=== PATIENT | male | born 1955 | race Caucasian/White ===

== ENCOUNTER 2019-01-29 22:13 | Inpatient (IN) ==
[2019-01-29] MEDS ORDERED: ISOVUE-370 200 ML INFUS..BTL ONE (22:38)
[2019-01-29] MEDS ORDERED: Nitroglycerin 1,000 MCG/10 ML VIAL IV ONE (22:38)
[2019-01-29] MEDS ORDERED: 0.9 % Sodium Chloride 2,000 ML ONE (22:38)
[2019-01-29] MEDS ORDERED: Heparin 1,000 UNITS/500 mL 500 ML ONE (22:38)
[2019-01-29] MEDS ORDERED: *HR* Heparin 10,000 UNIT/10 ML VIAL ONE (22:38)
[2019-01-29] MEDS ORDERED: *HR* Midazolam HCl 2 MG/2 ML VIAL ONE (23:04)
[2019-01-29] MEDS ORDERED: *HR* FentaNYL (PF) 100 MCG/2 ML VIAL ONE (23:04)
[2019-01-29] MEDS ORDERED: *HR* Atropine Sulfate 1 MG/10 ML SYRINGE ONE (23:15)
[2019-01-29] MEDS ORDERED: Tirofiban 12.5 MG/250ML 12.5 MG/250 ML BAG ONE (23:24)
[2019-01-30] MEDS ORDERED: *HR* Phenylephrine 10 MG/ML VIAL ONE (00:01)
[2019-01-30] MEDS ORDERED: D5% in Water 250 ML ONE (00:02)
[2019-01-30] MEDS ORDERED: *HR* Midazolam HCl 2 MG/2 ML VIAL ONE ×2 (00:16→00:38)
[2019-01-30] MEDS ORDERED: 0.9 % Sodium Chloride 1,000 ML ONE (00:44)
--- NOTE | 2019-01-30 01:05 | Cardiology Consult Note ---
Date of Encounter: 01/29/19 Time of Encounter: 23:00 Assessment and Plan Discussion w patient/family: The assessment and plan as outlined above was discussed with the patient and/or family members who expressed understanding and agreement. All questions were answered. Thank you for involving us in the care of your patient. Please call with any questions. History of Present Illness Consult date: 01/29/19 Consult reason: stemi Chief complaint: chest pain History of present illness: Mr. Galeano is a 63 year old male admitted to the optical laboratory mechanic as transfer from [place] ED where he presented with anterior wall STEMI. At cath there is severe three vessel disease Wth acute LAD occlusion. Aspiration thrombectomy with removal of thrombus and atheroma and unable to keep vessel open. There is RCA occlusion chronic withy L to R collateral. The CX and Left main has disease. Spoke with family and they want transfer to [place]. I spoke with Dr. Bobby who will receive him. . Patient neededec pressor a nd needed intubation. Will transfer.. Past Med Surg Social Fam HX - Past Medical History Medical history: no medical history Psychiatric history: no psych history - Social History Smoking Status: Never smoker Smokeless Tobacco Status: No Alcohol use: none Drug use: none Medications and Allergies No Known Home Drugs 01/29/19 [History] Allergy/AdvReac Type Severity Reaction Status Date / Time No Known Allergies Allergy Verified 01/29/19 21:58 ROS unobtainable: due to endotracheal tube All Systems Review: The remainder of the systems were reviewed and are negative Review of Systems: severe pain progressive over past 2 weeks and much worse today.. - Cardiovascular Cardiovascular: as per HPI, chest pain at rest, chest pain with exertion
[2019-01-30] MEDS ORDERED: *HR* Midazolam HCl 5 MG/5 ML VIAL IVP ONE (01:15)
--- NOTE | 2019-01-30 01:49 | Invasive Diagnostic Lab Proc ---
Name: Wally Galeano Date of Study: 01/29/2019 Date: 1955 Ht: 68.9in Medical Record#: [id number] Age: 63 Wt: 199.96lb Gender: Male BSA: 2.06 Order #: [id number] BMI: 29.62 Physicians Procedure Physician: Dallas Beltrán MD Referring MD: Referring MD: Staff Name Position Time In [facility] Paco RN Monitor 11:03 PM Nicky Bermudez RN Scrub 11:06 PM Shanell Giang RN Chemical Process Engineer 11:06 PM Indications Indication STEMI Procedures Performed Procedure PRQ CARD REVASC CT 1 VSL CORONARY ARTERY ANGIO S&I Pre-Procedure Checklist Informed consent is complete signed and on chart. H&P is on chart. ID band is on and ID verified with patient. Patient NPO for procedure The procedure was described for the patient and questions were answered. Blood Pressure: 156/101 ECG is on chart. Rhythm: NSR Plan of Care Patient will tolerate the procedure without complications. Adequate level of comfort will be maintained. Hemodynamics will remain stable Patient will recover from procedure without complications. Respiratory function will be maintained. Cardiac rhythm will remain stable. Patient temperature will be maintained. Patient and/or family have verbalized understanding of the procedure. Patient Education Chief Complaint/Reason for Test: Cardiac Cath Developmental Category: Geriatric (65+ years) Developmentally Appropriate for Age: Yes Learning Barriers: None Education Needs: Procedure Education Method: Verbal Information Taught: Cardiac Cath Educational Evaluation: Able to repeat information Intravenous Access Time IV Size Location DC'd Fluid/Drip Rate Units RN 18g 1 1/4" Patent On Arrival Rt Antecubital Shanell Giang RN 20g 1 1/4" Patent On Arrival Lt Antecubital 0.9NaCl Shanell Giang RN Allergies No Known Allergies Vital Signs Time BP (mmHg) HR (bpm) O2 Sat. RR (bpm) LOC 11:07 PM / % 5 = Fully awake and oriented or at pre-proc level 11:07 PM / % 4 = Oriented but drowsy 11:23 PM / % 4 = Oriented but drowsy 11:39 PM / % 5 = Fully awake and oriented or at pre-proc level 11:55 PM / % 4 = Oriented but drowsy 11:07 PM 143 / 99 87 95 % 11:11 PM 139 / 90 81 99 % 8 11:16 PM 156 / 101 88 97 % 17 11:21 PM 158 / 102 93 96 % 17 11:26 PM 153 / 99 91 97 % 15 11:31 PM 131 / 82 89 98 % 17 11:36 PM 126 / 92 84 97 % 7 11:42 PM 137 / 85 80 100 % 8 11:46 PM 134 / 86 86 98 % 10 11:51 PM 123 / 82 91 96 % 16 12:00 AM 76 / 59 86 99 % 22 12:05 AM 103 / 83 86 97 % 17 12:13 AM 128 / 100 87 86 % 20 12:15 AM 107 / 81 83 84 % 16 12:17 AM 96 / 77 87 96 % 15 12:22 AM 78 / 64 55 82 % 30 12:27 AM 95 / 81 131 84 % 15 12:32 AM 84 / 59 112 81 % 34 12:48 AM 93 / 71 105 94 % 14 12:53 AM 88 / 68 101 97 % 30 12:58 AM 94 / 67 91 99 % 17 Procedural Medications Time Medication Dose Units Method Given By 11:07 PM Oxygen 2 L/min nasal cannula Shanell Giang RN 11:07 PM Versed 2 mg Intravenous Shanell Giang RN 11:07 PM Fentanyl 50 mcg Intravenous Shanell Giang RN 11:13 PM Lidocaine 2% 10 ml Subcutaneous Dallas Beltrán MD 11:26 PM Aggrastat Bolus: 46 ml Intravenous Shanell Giang RN 11:27 PM Aggrastat 12.5mg/250ml 16.5 ml/hr Intravenous Shanell Giang RN 11:32 PM Heparin 3000 units Intravenous Shanell Giang RN 12:07 AM Neosynephrine 100 mcg/min Intravenous Shanell Giang RN 12:15 AM Versed 1 mg Intravenous Shanell Giang RN 12:15 AM Fentanyl 50 mcg Intravenous Shanell Giang RN 12:14 AM Heparin 3000 units Intravenous Shanell Giang RN 12:27 AM Atropine 1 mg Intravenous Paco Nguyen RN 12:39 AM Versed 2 mg Intravenous Shanell Giang RN 12:44 AM Versed 1 mg Intravenous WendyPaco bro RN ASA Classification: Emergent Procedure: ASA score is assumed Sarah Score Preprocedure Postprocedure Activity 2- Moves 4 extremities sustained head lift Activity 2- Moves 4 extremities sustained head lift Circulation 2- SBP +/= 20 points of pre-anesthetic level Circulation 1- SBP+/= 20 - 50 points of pre-anesthetic level Consciousness 2- Awake and alert oriented x 3 Consciousness 0- Non-responsive O2 Saturation 2- Able to maintain O2 satruation of 92% on room air O2 Saturation 0- O2 saturation 90% even with O2 supplement Respiratory 2- Able to deep breathe and cough well Respiratory 0- Apneic requires ventilator or assisted respiration Total Score 10 Total Score 3 Contrast Agent: Isovue Diagnostic Contrast: 210 ml Total Contrast: 210 ml Fluoro Dose: 168 mGy Activated Clotting Time Time Seconds to Clot 12:15 AM 160 Procedure Log Time Note Enter By 11:03 PM Pt arrived to laboratory inspector 2 at 23:03 [facility] 11: PM Paco Nguyen RN Position: Monitor Time in: : [facility] : PM Physician arrived 23: [facility] : PM Donn and guille completed [facility] : PM Sign in performed according to hospital policy. Informed consent was obtained. [facility] : Procedure start 23: [facility] : PM CathStat 11:06 PM Vitals capture started with the following parameters, Patient=Adult, Interval=5 min, Initial Gntpovhx=619 mmHg, Deflation Rate=3 mmHg, Cuff placed on Right Arm 11: PM Nicky Bermudez RN Position: Scrub Time in: 23: [facility] 11: PM Shanell Giang RN Position: Chemical Process Engineer Time in: : [facility] : PM Patient charges- Angio tray pack, Navilyst 3mm J, Pulse Oximetry and ACIST tubing and transducer [facility] : PM Hair removed from procedure site in holding area using clippers. Bilateral groin prepped with Chloraprep by Nicky Bermudez RN, then patient was draped. Skin intact. [facility] : PM Time: 23:07 Patient comfortable and pain free: Yes [facility] : PM Time: 23:07LOC: 5 = Fully awake and oriented or at pre-proc level [facility] : PM Time: 23:07 Oxygen on at 2 L/min per nasal cannula by Shanell [facility]ang RN [facility] 11:07 PM Time: 23:07 Versed 2 mg Intravenous Given by Shanell Giang RN roxnanci 11:07 PM Time: 23:07 Fentanyl 50 mcg Intravenous Given by Shanell Giang RN [facility] 11:07 PM HR=87 bpm, ROLW=309/99 mmhg, SpO2=95.0 % 11:11 PM HR=81 bpm, PNZC=637/90 mmhg, SpO2=99.0 %, Resp=8 B/min 11:13 PM Time out was performed according to hospital policy. Conscious sedation and anesthesia was achieved (see medication log with in this report above) [facility] 11:13 PM Critical cardiac patient with acute CT was brought emergently to the cardiac metallurgical lab technician for immediate coronary angiography and intervention if clinically indicated. [facility] 11:13 PM Time: 23:13 10 ml Lidocaine 2% to 20 Subcutaneous Given by Dallas Beltrán MD [facility] 11:13 PM Pressure channel 1 zeroed. 11:14 PM Access obtained by percutaneous puncture. 6Fr 10cm Terumo [place] sheath placed in right Femoral artery. [id number] [facility] 11:15 PM Recorded Pressure: Ao, HR=84, Condition=Condition 1 (Aorta) Ao 138/105/122 11:15 PM 5Fr FR 4 catheter inserted over the wire [facility] 11:16 PM RCA angiography performed in multiple views. [facility] 11[facility] PM HR=88 bpm, ZBAM=072/101 mmhg, SpO2=97.0 %, Resp=17 B/min 11:17 PM [facility] 11:17 PM 6Fr XB3.5 Cordis guide catheter was used to cannulate the PCI vessel successfully. reused? No [facility] 11:17 PM Inflation device was opened. [facility] 11:17 PM Recorded Pressure: Ao, HR=90, Condition=Condition 1 (Aorta) Ao 121/72/95 11:18 PM Recorded Pressure: Ao, HR=90, Condition=Condition 1 (Aorta) Ao 141/92/114 11:21 PM HR=93 bpm, HEJQ=709/102 mmhg, SpO2=96.0 %, Resp=17 B/min 11:23 PM Time: 23:07LOC: 4 = Oriented but drowsy [email or web address] 11:23 PM Time: 23:07 Patient comfortable and pain free: Yes [facility] 11:24 PM .014 [employer] [place] 190cm guide wire across target lesion- successful. reused? No [facility] 11: PM Time: 23: Aggrastat Bolus: 46 ml Intravenous Given by Shanell Giang RN Pena pump [facility] 11: PM HR=91 bpm, HNFC=364/99 mmhg, SpO2=97.0 %, Resp=15 B/min 11: PM Time: : Aggrastat 12.5mg/250ml 16.5 ml/hr Intravenous Given by Shanell Giang RN Pena pump [facility] 11: PM 2.5 mm x 12 mm Emerge Monorail balloon across target lesion- successful. reused? No [facility] 11: PM Balloon inflated @ 12 edward for [facility] 11: PM Balloon inflated @ 12 edward for [facility] 11: PM Balloon inflated @ 12 edward for 9 seconds [email or web address] 11: PM Lesion found in Proximal LAD. Pre Stenosis: 100 Pre ANGIE Flow: 0: No Flow/No perfusion jcallan 11:29 PM Proximal Left Anterior Descending Coronary Artery with 100% stenosis. If graft is supplying this territory, 0 % stenosis. jcallihan 11:31 PM HR=89 bpm, HYDH=215/82 mmhg, SpO2=98.0 %, Resp=17 B/min 11:32 PM Time: 23:32 Heparin 3000 units Intravenous Given by hSanell Giang RN [facility] 11:33 PM .014 ChoICE PT Extra Support 182cm guide wire across target lesion- successful. reused? No... Second wire down 1st diag. jcallihan 11:36 PM HR=84 bpm, TFEI=275/92 mmhg, SpO2=97.0 %, Resp=7 B/min 11:37 PM Recorded Pressure: Ao, HR=82, Condition=Condition 1 (Aorta) Ao 102/79/91 11:37 PM 2.0 mm x 15 mm Emerge Monorail balloon across target lesion- successful. reused? No [email or web address] 11:39 PM Time: 23:23 Patient comfortable and pain free: Yes [facility] 11:39 PM Time: 23:23LOC: 4 = Oriented but drowsy [facility]han 11:42 PM HR=80 bpm, GPHQ=253/85 mmhg, FvE2=695.0 %, Resp=8 B/min 11:46 PM HR=86 bpm, RMUX=842/86 mmhg, SpO2=98.0 %, Resp=10 B/min 11:49 PM difficulty getting wires across vessel. jcallihan 11:50 PM Recorded Pressure: Ao, HR=86, Condition=Condition 1 (Aorta) Ao 112/76/92 11:51 PM HR=91 bpm, AXKB=029/82 mmhg, SpO2=96.0 %, Resp=16 B/min 11:54 PM Balloon inflated @ 6 edward for 12 seconds [email or web address] 11:55 PM Balloon inflated @ 6 edward for [facility] 11:55 PM Time: 23:39 Patient comfortable and pain free: Yes j[facility]han 11:55 PM Time: 23:39LOC: 5 = Fully awake and oriented or at pre-proc level [email or web address] 11:55 PM Balloon inflated @ 6 edward for 10 seconds [email or web address] 11:56 PM Balloon inflated @ 6 edward for 14 seconds jcallan 11:57 PM Balloon inflated @ 6 edward for 13 seconds jcallan 11:57 PM Balloon inflated @ 10 edward for 31 seconds jcallan 11:58 PM Balloon inflated @ 10 edward for 16 seconds jcallan 11:58 PM Balloon inflated @ 10 edward for 10 seconds jcallan 11:58 PM Vitals capture stopped. 11:58 PM Vitals capture started with the following parameters, Patient=Adult, Interval=5 min, Initial Urscrusu=562 mmHg, Deflation Rate=3 mmHg, Cuff placed on Right Arm 12:00 AM HR=86 bpm, NIBP=76/59 mmhg, SpO2=99.0 %, Resp=22 B/min 12:01 AM Balloon inflated @ 12 edward for 22 seconds [email or web address] 12:01 AM Balloon inflated @ 12 edward for 20 seconds j[facility]ihan 12:02 AM Recorded Pressure: Ao, HR=88, Condition=Condition 1 (Aorta) Ao 75/63/69 12:02 AM Balloon inflated @ 16 edward for 30 seconds jcallihan 12:02 AM Balloon inflated @ 16 edward for 14 seconds [email or web address] 12:03 AM Balloon inflated @ 16 edward for 19 seconds jcallihan 12:03 AM Balloon inflated @ 16 edward for 10 seconds jcallihan 12:04 AM Balloon inflated @ 16 edward for 12 seconds jcallihan 12:05 AM Balloon inflated @ 16 edward for 11 seconds jcallihan 12:05 AM HR=86 bpm, ZHQE=029/83 mmhg, SpO2=97.0 %, Resp=17 B/min 12:07 AM Time: 00:07 Neosynephrine 100mcg/min Intravenous Given by Shanell Giang RN [facility] 12:11 AM Time: 23:55LOC: 4 = Oriented but drowsy j[facility]ihan 12:11 AM Time: 23:55 Patient comfortable and pain free: Yes [email or web address] 12:11 AM Balloon catheter removed intact. [email or web address] 12:11 AM Balloon catheter removed intact. jcallihan 12:11 AM Guide wire removed intact. BMW. Choice Pt is down the LAD [facility] 12[facility]11 AM Vitals capture stopped. 12:12 AM Vitals capture started with the following parameters, Patient=Adult, Interval=5 min, Initial Inbnqbna=175 mmHg, Deflation Rate=3 mmHg, Cuff placed on Right Arm 12:13 AM HR=87 bpm, XMZF=954/100 mmhg, SpO2=86 %, Resp=20 B/min 12:14 AM NIBP STAT measurement started. 12:14 AM Time: 00:14 Heparin 3000 units Intravenous Given by [facility] 12:15 AM HR=83 bpm, MDIT=548/81 mmhg, SpO2=84 %, Resp=16 B/min 12:15 AM Time: 00:15 Versed 1 mg Intravenous Given by Shanell Giang RN [facility] 12:15 AM Time: 00:15 Fentanyl 50 mcg Intravenous Given by Shanell Giang RN 12:15 AM Guide catheter removed intact. [facility] 12:15 AM Guide wire removed intact. [facility] 12:15 AM At 00:15 the ACT was 160 seconds. allnanci 12:17 AM HR=87 bpm, NIBP=96/77 mmhg, SpO2=96 %, Resp=15 B/min 12:18 AM Pronto V4 thrombectomy pass # 1 for 10 ml total fluid. jcallan 12:19 AM Pronto V4 thrombectomy pass # 2 for 30 ml total fluid. [facility] 12:22 AM HR=55 bpm, NIBP=78/64 mmhg, SpO2=82 %, Resp=30 B/min 12:27 AM MP=878 bpm, NIBP=95/81 mmhg, SpO2=84 %, Resp=15 B/min 12:27 AM Time: 00:27 Atropine 1 mg Intravenous Given by Paco Nguyen RN [facility] 12:32 AM UU=456 bpm, NIBP=84/59 mmhg, SpO2=81 %, Resp=34 B/min 12:38 AM Respiratory called for intubation [facility] 12:38 AM Recorded Pressure: Ao, ST=153, Condition=Condition 1 (Aorta) Ao 92/66/76 12:39 AM Time: 00:39 Versed 2 mg Intravenous Given by Shanell Giang RN [facility] 12:39 AM Vitals capture stopped. 12:44 AM Time: 00:44 Versed 1 mg Intravenous Given by Paco Nguyen RN [facility] 12:45 AM Time: 00:44 Neosynephrine 100 mcg/min Intravenous Given by Shanell Giang RN [facility] 12:47 AM pt intubated at 0045 [facility] 12:47 AM Vitals capture started with the following parameters, Patient=Adult, Interval=5 min, Initial Csrdvawh=719 mmHg, Deflation Rate=3 mmHg, Cuff placed on Right Arm 12:48 AM PT=994 bpm, NIBP=93/71 mmhg, SpO2=94 %, Resp=14 B/min 12:53 AM CV=107 bpm, NIBP=88/68 mmhg, SpO2=97 %, Resp=30 B/min 12:55 AM Procedure completed at 00:55 01/30/2019 [facility] 12:58 AM HR=91 bpm, NIBP=94/67 mmhg, SpO2=99 %, Resp=17 B/min 12:58 AM Sign out completed: Radiation Dose 1633.56 mGy, 168 Gy/cm2 Fluoro Time: 24.4 Isovue 370 - 200ml contrast 210 ml given by Dallas Beltrán MD. Complications: None. The patient was discharged out of the metallurgical lab technician in critical condition. Sedation minutes 111. Cardiac Rehab Consult needed: Yes. Confirmed administered medications: Yes jcallihan 12:58 AM Isovue 370 - 200ml,2 Bottle(s) used. jcallihan 12:58 AM Sheath left in place to be pulled on floor/holding areaV+Pad jcallihan 12:58 AM Estimated Blood Loss: less than 20cc jcallihan 12:59 AM Post ECG NSR jcallihan 12:59 AM Post Blood Pressure 94/67 jcallihan 12:59 AM 00:59 Post Pulses Bilateral DP & PT 1+ [email or web address] 01:00 AM Information taught Cardiac Cath jcallihan 01:00 AM Education needs Procedure, Plan of Care, and Responsibilities of Patient in Care jcallihan 01:00 AM Education Methods not evaluated, pt intubated. [email or web address] 01:01 AM Learning barriers :Sedated jcallihan 01:01 AM Education evaluation Not ready to learn jcallihan 01:01 AM Site status No bleeding/ No Hematoma - Rt Groin as reported by Nicky Bermudez RN at 01:01 j[facility]ihan 01:01 AM Opsite applied jcallihan 01:01 AM Plavix, Effient or Brilinta given Yes jcallihan 01:02 AM Family placed in consult room, Dr. Beltrán completed conversation with family. Family is requesting to send patient to [place]. [email or web address] 01:03 AM Vitals capture stopped. 01:12 AM Report given to Denilson DIAZ Pt taken to ICU Room #11. 01:12 [email or web address] 01:12 AM Plavix, Effient or Brilinta given Yes jcallihan 01:12 AM Patient out of room: 01:12 jcallihan 01:12 AM Complications: None, respiratory intervention. [email or web address] 01:16 AM Coronary Dominance: right [email or web address] 01:16 AM Did you address ANGIE flow and Dominance? YesCoronary Dominance: right [email or web address] 01:20 AM Unsuccessful intervention of the LAD, case abandoned; Dr. Beltrán spoke with family about options moving forward. [email or web address] 01:22 AM Lesion found in Proximal RCA. Pre Stenosis: 100 Pre ANGIE Flow: [email or web address] 01:22 AM Lesion found in 1st Diagonal. Pre Stenosis: 95 Pre ANGIE Flow: [email or web address] 01:23 AM Lesion found in Proximal Circumflex. Pre Stenosis: 95 Pre ANGIE Flow: jcallihan 01:23 AM Lesion found in 1st Marginal. Pre Stenosis: 95 Pre ANGIE Flow: jcallihan 01:23 AM Mid/Distal Left Anterior Descending Coronary Artery and diagonal branches with 95% stenosis. If graft is supplying this area, 0 % stenosis jcallihan 01:23 AM Circumflex, Obtuse Marginal, Left Posterior Descending, and Left Posterolateral Coronary Arteries with 95 % stenosis. If graft is supplying this area, 0 % stenosis jcallihan 01:23 AM Right Coronary, Right Posterior Descending Arteries with Right Posterolateral and Acute Marginal branches with 100 % stenosis. If graft is supplying this area, 0 % stenosis jcallihan Complications Complication None None Hemodynamics Pressures Site Systolic/A Wave Diastolic/V Wave Mean AO 138 105 122 AO 121 72 95 AO 141 92 114 AO 102 79 91 AO 112 76 92 AO 75 63 69 AO 92 66 76 Post Procedure Information Blood Pressure: 94/67 mmHg Rhythm: NSR Post procedural instructions were given Closure Device Time Device Success/Fail Manual Compression Site Checks Time Location Status Staff Sheath In? Note 01:01 AM Rt Groin No bleeding/ No Hematoma Nicky Bermudez RN Pulses Time Site Pre-Procedure Post-Procedure Note Bilateral DP & PT 2+ Bilateral radial 2+ 12:59:00 AM Bilateral DP & PT 1+ Updated by Paco Nguyen RN on 01/30/2019 1:37:25 AM electronically signed on 01/30/2019 1:40:17 AM with status of Final
--- NOTE | 2019-01-30 02:30 | Procedure Note ---
Date of procedure: 01/30/19 Pre-op diagnosis: Hypotension Post-op diagnosis: same Procedure: Central Venous Catheter (CVC, Central Line) Placement Date: 01/30/19 Time: 0200 Indication: Hemodynamic monitoring/Intravenous access Resident: Kenneth Cruz DO Attending: Dr Hal Brandt time-out was completed verifying correct patient, procedure, site, positioning, and special equipment if applicable. The patient was placed in a dependent position appropriate for central line placement based on the vein to be cannulated. The patients right neck was prepped and draped in sterile fashion. A triple lumen 7-Turkmen Cordis catheter was introduced into the the internal jugular using the Seldinger technique and under ultrasound guidance. The catheter was threaded smoothly over the guide wire and appropriate blood return was obtained. Each lumen of the catheter was evacuated of air and flushed with sterile saline. The catheter was then sutured in place to the skin and a sterile dressing applied. Perfusion to the extremity distal to the point of catheter insertion was checked and found to be adequate. Dr Hong was present for the entire procedure. Estimated Blood Loss: 3mL The patient tolerated the procedure well and there were no complications. Anesthesia: IV sedation Surgeon: Kenneth Cruz Was there an account assistant present: No Estimated blood loss (cc): 3 Specimen: none Pathology: none sent Condition: critical Disposition: ICU
[2019-01-30] MEDS ORDERED: *HR* Midazolam HCl 2 MG/2 ML VIAL IVP ONE (02:39)
[2019-01-30 03:16] VITALS: BP 73/59
== END 2019-01-30 02:45 | disposition critical access hospital (66) | DRG 251 ==
LOC: ICNU 22:58
PROVIDERS: ADMIT Internal Medicine Cardiovascular Disease; ATTEND Internal Medicine Cardiovascular Disease